=== PATIENT | male | born 1965 | race Caucasian/White ===

== ENCOUNTER 2017-05-11 13:10 | Emergency (ER) | payer BC ==
[2017-05-11] MEDS ORDERED: FLUORESCEIN 1 MG EYE STRIP ONE (13:21)
[2017-05-11] MEDS ORDERED: Tetracaine Ophth Soln 0.5% 40 DRP/4 ML BOTTLE ONE (13:21)
[2017-05-11 13:44] VITALS: RESP 16; TEMP 97.6
[2017-05-11] MEDS ORDERED: Tetracaine Ophth Soln 0.5% 40 DRP/4 ML BOTTLE RIGHT EYE ONE (14:02)
[2017-05-11] MEDS ORDERED: FLUORESCEIN 1 MG EYE STRIP EACH EYE ONE (14:02)
--- NOTE | 2017-05-11 15:31 | PDOC ---
Eye Complaint HPI - General Chief Complaint: Eye Problem / Injury Stated Complaint: fb sensation right eye Date Seen by Provider: 05/11/17 Time Seen by Provider: 13:15 Source: POSITIVE: Patient Exam Limitations: POSITIVE: No limitations Nurse's Notes Reviewed & Considered: Yes - History of Present Illness Initial Comments: The patient is a 47-year-old male. He states he was out mowing the grass. He was resting and then felt the abrupt onset of a foreign body sensation in his right eye. He thinks that something may have "dropped into my eye". Instant occurred 4 hours [employer] DESK [employer]. Patient wears no glasses or contact lenses. No gross changes in visual acuity. 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) Severity: Moderate Quality: REPORTS: "Pain", Other (Foreign body sensation right eye) Recent Injury: REPORTS: Possibly (As above) Associated Symptoms: REPORTS: Foreign Body Sensation Context: REPORTS: Foreign Body (Possibly) Location at Time of Onset: REPORTS: Home Concurrent Injuries: DENIES: Neck, Head, Back, Chest, Abdomen, Extremities, Face , Other Modifying Factors: REPORTS: Nothing Exacerbates Similar Symptoms Previously: No Recent Care Received: REPORTS: Denies Any Prior Injuries Related to Current Complaint?: No - Patient Home Medications Home Medications: Home Medications Amlodipine Besylate/Benazepril [Amlodipine-Benazepril 10-40 Mg] 1 cap PO DAILY # 90 cap 11/21/16 Benazepril HCl 1 tab PO QAM #90 tab 11/21/16 Sulfacetamide Oph Soln 10% [Bleph 10 Ophth Soln] 5 ml OP Q6H #1 drops 05/11/17 - Patient Allergies Allergies/Adverse Reactions: Allergies Allergy/AdvReac Type Severity Reaction Status Date / Time No Known Drug Allergies Allergy NO KNOWN Verified 05/11/17 13:17 ALLERGIES Past Medical History - heen HEENT History: Denies History Cardiovascular History: Hypertension, Angina Additional Cardiovasular History: CHEST PAIN AT NIGHT, EKG CXR AND LABS DONE AND NEGATIVE CARDIAC Respiratory History: Home CPAP Use Gastrointestinal History: GERD Genitourinary History: Denies History Endocrine History: Denies History Musculoskeletal History: Back Pain Prosthesis or Implant: Yes (LEFT FOOT) Additional Musculoskeletal History: BUNIONS Neurological History: Denies History Blood Disorders: Denies History Psychiatric History: Anxiety Disorders, ADHD History of Sexually Transmitted Diseases: No Cancer History: Denies History In Past Year Been Physically Harmed or Verbally Threatened: No History of MDRO: No History of Other Communicable Diseases: No Tobacco Use: Current Every Day Smoker Alcohol Use: Occasionally Substance Use Type: None Previous Surgical History: Yes Type / Date of Surgery: LEFT BUNIONECTOMY Anesthesia Reactions: No Malignant Hyperthermia: No Significant Family History: Heart disease, Cancer, Hypertension Past Medical History Reviewed: Reviewed - No Changes ROS - Limitations ROS Limitations: No Limitations Constitution: REPORTS: Denies Symptoms Cardiovascular: REPORTS: Denies Cardiac Symptoms Respiratory: REPORTS: Denies Resp Symptoms Neurological: REPORTS: Denies Neuro Symptoms Gastrointestinal: REPORTS: Denies GI Symptoms Endocrine: REPORTS: Denies Symptoms Musculoskeletal: REPORTS: Denies MS Symptoms Genitourinary: REPORTS: Denies Symptoms Eyes: REPORTS: Eye Pain (Foreign body sensation right eye) ENT: REPORTS: Denies Symptoms Skin: REPORTS: Denies Skin Symptoms Lympathic: REPORTS: Denies Lympathic Symptoms Immunologic: POSITIVE: Denies Symptoms Psychiatric: POSITIVE: Denies Psych Symptoms Eye Complaint Physical Exam - General Appearance General Appearance: POSITIVE: Alert, Cooperative, No Acute Distress. NEGATIVE: No Evidence of Trauma - Visual Acuity / Pupil Size Visual Acuity: 20/20: Bilateral - HEENT Head / Face: POSITIVE: Atraumatic, Normal Inspection, No Facial Swelling Eyes: POSITIVE: PERRL, EOM's Intact, Eyelids Uninjured, Conjunctivae Uninjured, No Nystagmus, No Globe Trauma, Sclera Normal, Normal Fundoscopic Exam, Ant. Chamber Nml Inspect., Posterior Segments Normal, Other (After instillation of topical anesthetic eyedrops, the upper and lower lids were everted; no foreign bodies first seen stain shows uptake of dye over the inferior aspect of the cornea. No corneal foreign bodies seen.). NEGATIVE: Fluorescein Exam Normal, Normal Corneal Inspection, Foreign Body Under Eyelid Ears: POSITIVE: Ears Normal Inspection, Auricle Normal Nose: POSITIVE: Inspection Normal, No Apparent Trauma, Nares Normal, No CSF Leak Oropharynx: POSITIVE: External Inspection Nml, Pharynx Inspect. Nml, Airway Intact, Voice Normal, Moist Mucous Membranes, No Oral Injury, Lips Normal, Gums Normal, No Drooling, No Thrush, Normal Gag Reflex - Skin Skin: POSITIVE: Normal Color, No Skin Rash - Respiratory / Cardiovascular Respiratory / CVS: POSITIVE: No Respiratory Distress, Breath Sounds Normal, Regular Rate/Rhythm, Heart Sounds Normal Peripheral Pulses: Radial (R): 2+, Radial (L): 2+ - Neurological / Psychological Neuro / Psych: POSITIVE: Oriented to Person, Oriented to Place, Oriented to Time , CN's Normal as Tested, Normal Speech, Normal Cognition, Appropriate Mood, Appropriate Affect Images - Eyes Eye: 1 - Corneal abrasion Eye Complaint Progress - Patient's Progress Pain Medication Addressed: POSITIVE: Yes (Recommended Advil or Tylenol) School/Work Release Addressed: POSITIVE: Not Applicable Re-Examine Time:: 13:35 Re-Examine Comment: Condition explained to patient. Sulfacetamide eyedrops prescribed. Status: POSITIVE: Unchanged - Consult Counseled: POSITIVE: Patient, RE: DX, RE: Need for F/U Patient Care Time - Estimated PCT Patient Care Time (In Minutes): 20 Vital Signs - Recent Vital Signs Vital Signs: Vital Signs (Last 8 hours) Temp Pulse Resp BP Pulse Ox 05/11/17 13:40 97.6 F 68 16 137/99 96 - VS Reviewed Vital Signs Reviewed: Yes Discharge Clinical Impression: Corneal abrasion Discharge Disposition: Discharged to Home Condition: Fair Prescriptions / Orders: Sulfacetamide Oph Soln 10% [Bleph 10 Ophth Soln] 5 ml OP Q6H #1 drops Additional Instructions: Avoid wind, son and dust. Sulfacetamide eyedrops, 3 drops right eye every 6 hours while awake. Return anytime if condition worsens. He will probably have some discomfort in your right eye until your corneal abrasion heals, which should take one to 2 days. Return anytime if condition worsens. Follow-up with your primary care doctor or eye physician. Follow Up With: YAHAIRA LINDER [Primary Care Provider] - (Return as necessary. Follow-up with your primary care provider. Return as necessary.)
== END 2017-05-11 13:46 | disposition home or self-care (01) ==
LOC: ER 13:10
DX: S05.01XA Injury of conjunctiva and corneal abrasion without foreign body, right eye, initial encounter (principal); H57.11 Ocular pain, right eye
CPT/HCPCS: 99282